=== PATIENT | female | born 1970 | race Caucasian/White ===

== ENCOUNTER 2017-03-09 21:22 | Emergency (ER) | payer SELFPAY ==
[~2017-03-09] VITALS: Ht 160 cm; Wt 55.5 kg
[2017-03-09 21:27] VITALS: TEMP 97.7
[2017-03-09] MEDS ORDERED: BLOOD PRESSURE MED (21:31)
[2017-03-10 00:13] VITALS: BP 144/98; PULSE 77
== END 2017-03-10 00:15 | disposition home or self-care (01) ==
LOC: COL.ER 21:22
DX: S30.0XXA Contusion of lower back and pelvis, initial encounter (principal); I10 Essential (primary) hypertension; F17.210 Nicotine dependence, cigarettes, uncomplicated; W01.0XXA Fall on same level from slipping, tripping and stumbling without subsequent striking against object, initial encounter